=== PATIENT | female | born 1970 | race Caucasian/White ===

== ENCOUNTER 2017-06-04 12:25 | Outpatient (CLI) ==
--- NOTE | 2017-06-04 13:53 | DI ---
Exam: Right hip two-view. HISTORY: Pain. Findings: Two images of the right hip demonstrate no acute fracture or dislocation. There is no oss eous erosion or radiodense foreign body. There is no subchondral lucency or collapse. The adjacent r ight nataly pelvis appears intact. Impressions: Mild degenerative disease in the right hip with no acute fracture or dislocation.
--- NOTE | 2017-06-04 13:54 | DI ---
Exam: Left hip two-view. HISTORY: Pain. Findings: Two images of the left hip are submitted. These demonstrate no acute fracture or dislocat ion. Mild degenerative disease is noted. There is no subchondral lucency or collapse. The adjacent left nataly pelvis appears intact. No focal soft tissue swelling is seen Impressions: Mild degenerative findings in the left hip with no acute fracture or dislocation.
--- NOTE | 2017-06-04 13:54 | DI ---
EXAM: Radiographs, right knee HISTORY: Right knee pain. COMPARISON: 04/01/2012. TECHNIQUE: Four views. FINDINGS: Bone mineralization is decreased. There is moderate medial compartment joint space narrow ing and moderate tricompartmental marginal osteophyte formation. No erosive changes are seen. No fr acture or dislocation identified. Soft tissues are unremarkable. Since the prior study, degenerativ e changes have worsened. IMPRESSION: Moderate osteoarthritis, worsened since the prior study.
== END 2017-06-04 12:26 | disposition home or self-care (01) ==
LOC: RAD 12:25
PROVIDERS: ATTEND Nurse Practitioner Family
DX: M25.552 Pain in left hip (principal); M25.551 Pain in right hip; M25.561 Pain in right knee